=== PATIENT | female | born 2000 | race Two or more races ===

== ENCOUNTER 2023-06-04 19:11 | Emergency (ER) | payer OTHER ==
[~2023-06-04] VITALS: Ht 162.6 cm; Wt 61.7 kg
== END 2023-06-04 21:51 | disposition home or self-care (01) ==
LOC: ER 19:11
DX: S61.211A Laceration without foreign body of left index finger without damage to nail, initial encounter (principal); W45.8XXA Other foreign body or object entering through skin, initial encounter; Y93.89 Activity, other specified; Y92.89 Other specified places as the place of occurrence of the external cause; Y99.8 Other external cause status